=== PATIENT | male | born 1995 | race Caucasian/White ===

== ENCOUNTER 2018-03-15 03:12 | Emergency (ER) | payer OTHER ==
[~2018-03-15] VITALS: Ht 175.3 cm; Wt 70.3 kg
[2018-03-15] MEDS ORDERED: NKM (03:27)
[2018-03-15 03:37] VITALS: BP 134/68
[2018-03-15] MEDS ORDERED: Norco 5mg/325mg tab PO ONE (03:45)
[2018-03-15] MEDS ORDERED: Ketorolac 30mg Inj IM ONE (03:45)
--- NOTE | 2018-03-15 04:14 | Diagnostic Imaging Report ---
EXAM: XR Right Hip With Pelvis When Performed, 1 View CLINICAL HISTORY: PAIN TECHNIQUE: Frontal view of the right hip, with pelvis when performed. COMPARISON: No relevant prior studies available. FINDINGS: Bones/joints: Unremarkable. No acute fracture. No dislocation. Soft tissues: Unremarkable. IMPRESSION: Normal right hip x-ray.
[2018-03-15] MEDS ORDERED: ROBAXIN-750750 MG PO (04:23)
[2018-03-15] MEDS ORDERED: NORCO 5-325 TA1 EACH ORAL (04:23)
[2018-03-15] MEDS ORDERED: IBUPROFEN600 MG ORAL (04:23)
[2018-03-15 04:47] VITALS: BP 128/64
[2018-03-15 04:48] VITALS: BP 128/64
--- NOTE | 2018-03-15 05:27 | Emergency Room Report ---
History of Present Illness General Chief Complaint: Pain Source: Patient Present Illness HPI 22-year-old male presents ED complaining of right hip pain. States that 3 days ago he fell while playing paint ball and felt a pop in his right hip. States he 's been having pain since. Pain is throbbing, 10 out of 10, radiating down the right leg. States he is able to walk but with pain. Patient states that he's been experiencing pain in the right hip for approximately 4 months now but has not sought medical attention yet. Does not recall a single event to cause the hip pain. No other aggravating relieving factors. Denies any other associated symptoms Allergies: Coded Allergies: No Known Allergies (Unverified , 03/15/18) Patient History Past Medical History: other - ADHD Past Surgical History: none Pertinent Family History: none Social History: Denies: smoking, alcohol use, drug use Immunizations: UTD Reviewed Nursing Documentation: PMH: Agreed; PSxH: Agreed Nursing Documentation-PMH Past Medical History: No History, Except For Hx Asthma: No - bronchitis Hx Neurological Problems: Yes - ADHD Review of Systems All Other Systems: negative except mentioned in HPI Physical Exam Vital Signs Date Time Temp Pulse Resp B/P (MAP) Pulse Ox O2 Delivery O2 Flow Rate FiO2 03/15/18 03:22 98.0 87 16 134/68 97 Room Air 98.1 Sp02 EP Interpretation: reviewed, normal General Appearance: no apparent distress, alert, GCS 15, non-toxic Head: normocephalic Eyes: bilateral eye normal inspection, bilateral eye PERRL ENT: normal ENT inspection Neck: normal inspection Respiratory: normal inspection Cardiovascular #1: normal inspection Gastrointestinal: normal inspection Rectal: deferred Genitourinary: no CVA tenderness Musculoskeletal: normal range of motion, tender - R hip Neurologic: alert, oriented x3, responsive, motor strength/tone normal, sensory intact, speech normal Psychiatric: judgement/insight normal, memory normal, mood/affect normal, no suicidal/homicidal ideation Skin: normal inspection Lymphatic: normal inspection Medical Decision Making Diagnostic Impression: Primary Impression: Hip pain Qualified Codes: M25.551 - Pain in right hip ER Course Hospital Course 22-year-old M presents to ED complaining of R hip pain Differential diagnoses include: Fracture, dislocation, sprain, contusion Clinical course Patient placed on stretcher. After initial history and physical, I ordered pain medications and Xrays of R hip Xrays read shows no acute fracture/dislocation. On reassessment pain improved. Discussed findings with patient. We'll discharge. We will provide orthopedic referrals Diagnosis - hip pain Stable and discharged to home with prescription for Motrin, robaxin, norco. apply ice, keep elevated. weight bear as tolerated. Followup with ortho. Return to ED if symptoms recur or worsen Other X-Ray Diagnostic Results Other X-Ray Diagnostic Results : X-Ray ordered: R hip # of Views/Limited Vs Complete: 3 View Indication: Pain EP Interpretation: Yes Interpretation: no dislocation, no soft tissue swelling, no fractures Impression: No acute disease Electronically Signed by: Electronically signed by Itz Rose MD Last Vital Signs Date Time Temp Pulse Resp B/P (MAP) Pulse Ox O2 Delivery O2 Flow Rate FiO2 03/15/18 04:49 98.1 03/15/18 04:48 70 18 128/64 99 Room Air Status: improved Disposition: HOME, SELF-CARE Condition: Stable Scripts Methocarbamol* (ROBAXIN-750*) 750 Mg Tablet 750 MG PO TID, #21 TAB 0 Refills Prov: Itz Rose MD 03/15/18 Hydrocodone Bit/Acetaminophen 5-325* (NORCO 5-325*) 1 Each Tablet 1 TAB ORAL Q6H PRN for For Pain, #10 TAB 0 Refills Prov: Itz Rose MD 03/15/18 Ibuprofen* (MOTRIN*) 600 Mg Tablet 600 MG ORAL Q8H PRN for For Pain, #30 TAB 0 Refills Prov: Itz Rose MD 03/15/18 Patient Instructions: Hip Pain Itz Rose MD Mar 15, 2018 05:27
== END 2018-03-15 04:53 | disposition home or self-care (01) ==
LOC: EMR 03:41
DX: M25.551 Pain in right hip (principal); F90.9 Attention-deficit hyperactivity disorder, unspecified type; W19.XXXA Unspecified fall, initial encounter; Y93.89 Activity, other specified; Y92.838 Other recreation area as the place of occurrence of the external cause
CPT/HCPCS: 73502; 96372; 99283; J1885